=== PATIENT | female | born 1970 | race Caucasian/White ===

== ENCOUNTER 2017-02-16 21:09 | Emergency (ER) | payer SELFPAY ==
[~2017-02-16] VITALS: Ht 167.6 cm; Wt 98.3 kg
[~2017-02-16 21:09] MED LIST: BENADRYL25 MG PO; PREDNISONE20 MG PO
[2017-02-17] MEDS ORDERED: NAPROSYN500 MG PO (01:31)
[2017-02-17] MEDS ORDERED: NORCO 5/3251 TABLET PO (01:31)
[2017-02-17 01:43] VITALS: BP 129/82
== END 2017-02-17 01:46 | disposition home or self-care (01) ==
LOC: EME 21:09
DX: M79.1 Myalgia (principal); L94.2 Calcinosis cutis; M16.12 Unilateral primary osteoarthritis, left hip; Z87.891 Personal history of nicotine dependence
CPT/HCPCS: 73552; 73700; 99281; 99283

== ENCOUNTER 2017-10-19 18:33 | Emergency (ER) | payer SELFPAY ==
[~2017-10-19] VITALS: Ht 167.6 cm; Wt 99.6 kg
[~2017-10-19 18:33] MED LIST changes: +NAPROSYN500 MG PO; +NORCO 5/3251 TABLET PO
[2017-10-19 18:37] VITALS: BP 119/74
== END 2017-10-19 19:42 | disposition home or self-care (01) ==
LOC: EME 18:33
DX: S90.852A Superficial foreign body, left foot, initial encounter (principal); W45.8XXA Other foreign body or object entering through skin, initial encounter; Z23 Encounter for immunization; F17.200 Nicotine dependence, unspecified, uncomplicated
CPT/HCPCS: 99281; 99284

== ENCOUNTER 2017-12-07 18:14 | Emergency (ER) | payer SELFPAY ==
[~2017-12-07] VITALS: Ht 167.6 cm; Wt 97.9 kg
[2017-12-07] MEDS ORDERED: ERYTHROMYC1 APPLICAT LEFT EYE (21:00)
[2017-12-07 21:54] VITALS: BP 107/71
== END 2017-12-07 21:55 | disposition home or self-care (01) ==
LOC: EME 18:14 → EXP 18:14
DX: S05.02XA Injury of conjunctiva and corneal abrasion without foreign body, left eye, initial encounter (principal); W22.8XXA Striking against or struck by other objects, initial encounter; J45.909 Unspecified asthma, uncomplicated; K21.9 Gastro-esophageal reflux disease without esophagitis; F17.200 Nicotine dependence, unspecified, uncomplicated
CPT/HCPCS: 99281; 99284